=== PATIENT | male | born 1985 | race Caucasian/White ===

== ENCOUNTER 2016-11-14 18:19 | Emergency (ER) | payer SELFPAY ==
[2016-11-14 18:30] VITALS: BP 137/81; PULSE 70; TEMP 97.7; BMI 33.0
--- NOTE | 2016-11-14 18:47 | PDOC ---
History of Present Illness - General History Source: Patient Exam Limitations: No Limitations <Danielle Matsoncasrenettakenneth - Last Filed: 11/14/16 22:09> <SerafinRian - Last Filed: 11/14/16 22:19> - General Chief Complaint: Chest Pain Stated Complaint: CHEST PAIN Time Seen by Provider: 11/14/16 18:47 - History of Present Illness Initial Comments: 11/14/16 19:26 The patient is a 31 year old male, with no significant past medical history, who presents to the emergency department with numbness to the left arm and chest pain for approximately 4 days. The patient reports he first noted numbness and weakness from the left elbow down to the front of his hand. Patient describes the numbness as a hot sensation. Patient reports associated episodes of dizziness 3 days ago. Patient reports he initially thought his symptoms were associated with his rotator cuff. Today, patient reports he began to experience chest pain, which he describes as a pressure. He reports mild left shoulder pain. He denies any diaphoresis, palpitations, shortness of breath, or lower extremity edema. Patient reports he has intermittently had numbness in his arm in the past. 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 He denies any recent trauma. He denies any fever, chills, or headache. He denies any abdominal pain, nausea, or vomiting. He denies any recent travel or sick contacts. Allergies: NKDA Past Surgical History: None reported Social History: Family hx of heart disease. Current everyday smoker. Daily ETOH use. No recreational drug use. (Deysi Matson) Past History <Deysi Matson - Last Filed: 11/14/16 22:09> - Past Medical History Anemia: No Asthma: No Cancer: No Cardiac Disorders: No CVA: No COPD: No CHF: No Dementia: No Diabetes: No GI Disorders: No Disorders: No HTN: No Hypercholesterolemia: Yes (QUESTIONABLE) Liver Disease: No Seizures: No Thyroid Disease: No - Surgical History Abdominal Surgery: No Appendectomy: No Cardiac Surgery: No Cholecystectomy: No Lung Surgery: No Neurologic Surgery: No Orthopedic Surgery: No - Suicide/Smoking/Psychosocial Hx Smoking History: Current every day smoker Have you smoked in the past 12 months: Yes Number of Cigarettes Smoked Daily: 25 Information on smoking cessation initiated: Yes 'Breaking Loose' booklet given: 11/14/16 Hx Alcohol Use: No Drug/Substance Use Hx: No Substance Use Type: None <Rian Betancourt - Last Filed: 11/14/16 22:19> - Past Medical History Allergies/Adverse Reactions: Allergies Allergy/AdvReac Type Severity Reaction Status Date / Time No Known Allergies Allergy Verified 11/14/16 18:29 Home Medications: Ambulatory Orders No Home Medications 0 dose .ROUTE UTDICT 03/29/12 Cyclobenzaprine HCl [Amrix] 15 mg PO DAILY #3 capsule 03/30/12 Ketorolac Tromethamine [Toradol] 10 mg PO Q6H #20 tablet 03/30/12 Oxycodone HCl/Acetaminophen [Percocet 5-325 mg Tablet] 1 - 2 tab PO Q4H PRN #30 tablet 03/30/12 Cardiac Specific PMH - Complaint Specific PMHX Pacemaker: No <Rian Betancourt - Last Filed: 11/14/16 22:19> Review of Systems - Review of Systems Able to Perform ROS?: Yes <Deysi Matson - Last Filed: 11/14/16 22:09> <Rian Betancourt - Last Filed: 11/14/16 22:19> - Review of Systems Comments:: 11/14/16 19:27 CONSTITUTIONAL: No fever, no chills, no fatigue EYES: No visual changes ENT: No ear pain, no sore throat CARDIOVASCULAR: Yes chest pain. No palpitations RESPIRATORY: No cough, no SOB GI: No abdominal pain, no nausea, no vomiting, no constipation, no diarrhea GENITOURINARY: No dysuria, no frequency, no hematuria MUSCULOSKELETAL: Left arm numbness, left shoulder pain. No back pain, no myalgias SKIN: No rash NEURO: Yes dizziness. No headache (Matson,Giomilsy) *Physical Exam <Deysi Matson - Last Filed: 11/14/16 22:09> <Rian Betancourt - Last Filed: 11/14/16 22:19> - Vital Signs Last Vital Signs Temp Pulse Resp BP Pulse Ox 97.7 F 70 18 137/81 98 11/14/16 18:27 11/14/16 18:27 11/14/16 18:27 11/14/16 18:27 11/14/16 18:27 - Physical Exam Comments: 11/14/16 19:27 CONSTITUTIONAL: Well-appearing; well-nourished; in no apparent distress HEAD: Normocephalic; atraumatic EYES: PERRL; EOM intact ENMT: External appears normal; normal oropharynx NECK: Supple; non-tender; no cervical lymphadenopathy CARD: Normal S1, S2; no murmurs, rubs, or gallops RESP: Normal chest excursion with respiration; breath sounds clear and equal bilaterally; no wheezes, rhonchi, or rales ABD: Soft, non-distended; non-tender; no palpable organomegaly, no palpable hernias SKIN: Warm, dry, no rash (Deysi Matson) EXTR: No obvious deformity; there is mild to moderate tenderness to palpation along the anterior aspect of the left shoulder joint, with pain on abduction and anterior flexion; neurovascularly intact distally; there is also reproducible tenderness anteromedial to the left shoulder joint reproducing the patient's chest discomfort; NEURO: Cranial nerves II through XII are grossly intact; motor is 5 of 54; Fine touch and proprioception are intact bilaterally; gait-stable; (Rian Betancourt) Heart Score/ECG Review <Deysi Matson - Last Filed: 11/14/16 22:09> <Rian Betancourt - Last Filed: 11/14/16 22:19> - ECG Intrepretation Comment:: 11/14/16 22:09 Time: 18:29 Vent Rate: 76 bpm IMPRESSION: Normal sinus rhythm Time: 21:11 Vent Rate: 67 bpm IMPRESSION: Normal sinus rhythm (Deysi Matson) ED Treatment Course - LABORATORY CBC & Chemistry Diagram: 11/14/16 19:23 11/14/16 19:23 <Deysi Matson - Last Filed: 11/14/16 22:09> - LABORATORY CBC & Chemistry Diagram: 11/14/16 19:23 11/14/16 19:23 <Rian Betancourt - Last Filed: 11/14/16 22:19> - ADDITIONAL ORDERS Additional order review: Laboratory Results 11/14/16 19:23 Sodium 142 Potassium 4.0 Chloride 109 H Carbon Dioxide 26 Anion Gap 7 L BUN 12 Creatinine 0.7 Creat Clearance w eGFR > 60 Random Glucose 114 H Calcium 8.8 Total Bilirubin 0.2 AST 16 ALT 39 Alkaline Phosphatase 72 Creatine Kinase 96 Troponin I < 0.02 Total Protein 6.8 Albumin 3.7 11/14/16 19:23 RBC 5.04 MCV 88.0 MCHC 33.6 RDW 13.0 MPV 8.3 Neutrophils % 44.7 Lymphocytes % 44.7 H Monocytes % 5.5 Eosinophils % 4.3 Basophils % 0.8 - RADIOLOGY Radiology Studies Ordered: Category Date Time Status CHEST PA & LAT [RAD] Stat Radiology 11/14/16 19:15 Taken - Medications Given in the ED: ED Medications Discontinued Medications Generic Name Dose Route Start Last Admin Trade Name Freq PRN Reason Stop Dose Admin Ketorolac Tromethamine 60 mg 11/14/16 20:53 11/14/16 20:57 Toradol Injection - IM 11/14/16 20:54 60 mg ONCE ONE Administration Medical Decision Making <Deysi Matson - Last Filed: 11/14/16 22:09> <Rian Betancourt - Last Filed: 11/14/16 22:19> - Medical Decision Making 11/14/16 22:14 Patient is a well-appearing 31-year-old male who presents to the ER with atraumatic left arm paresthesias, left shoulder pain and left anterior chest pain. Patient's left arm paresthesias of persisted for the past several years but have increased in severity over the past several days. Patient's left shoulder and anterior chest pain have persisted for the past 4 days; symptoms are nonpleuritic, atraumatic and are exacerbated by movement at the shoulder joint. In the ER, patient is awake and alert, hemodynamically stable. Chest x- ray reveals no evidence of apical mass; there is no evidence of cardiomegaly; mediastinum is within normal limit. Serial EKGs are within normal limit. Cardiac enzymes are within normal limit and given the onset of symptoms 4 days prior cyst and with absence of myocardial infarction in this patient. Patient's satisfies all the PERC criteria and PEs highly unlikely. I do not suspect ACS/ PE or aortic dissection at this time. Patient was given IM Toradol with improvement in the level of his symptoms. Will discharge with orthopedic follow- up. (Rian Betancourt) *DC/Admit/Observation/Transfer <Deysi Matson - Last Filed: 11/14/16 22:09> <Rian Betancourt - Last Filed: 11/14/16 22:19> Diagnosis at time of Disposition: Atypical chest pain, Paresthesia of left upper extremity Left shoulder pain Qualifiers: Chronicity: acute Qualified Code(s): M25.512 - Pain in left shoulder; M25.512 - Pain in left shoulder - Discharge Dispostion Disposition: HOME Condition at time of disposition: Stable - Referrals Referrals: Neeraj Alba MD [Staff Physician] - Silviano Pascual MD [Staff Physician] - - Patient Instructions Printed Discharge Instructions: DI for Atypical Chest Pain, DI for Shoulder Pain, DI for Numbness/tingling - Attestations Scribe Attestion: 11/14/16 19:26 Documentation prepared by Deysi Matson, acting as medical pathologist for Rian Betancourt MD. (Deysi Matson) Physician Attestion: 11/14/16 22:12 The documentation was prepared by the scribe under my direct supervision. I have reviewed the documentation which correctly represents the findings, medical decision-making and critical action taken by me. (Rian Betancourt)
[2016-11-14 19:29] LABS: BASOPHIL 0.8 % (0-2.0); EOSINOPHIL 4.3 % (0-4.5); MCH 29.5 pg (25.7-33.7); MCHC 33.6 g/dl (32.0-35.9); MEAN PLT VOLUME 8.3 fl (7.5-11.1); NEUTROPHILS 44.7 % (42.8-82.8); PLATELET COUNT 194 K/MM3 (134-434); WHITE BLOOD COUNT 8.6 K/mm3 (4.0-10.0)
[2016-11-14 19:51] LABS: ALBUMIN 3.7 g/dl (3.4-5.0); ANION GAP 7 (8-16); BILIRUBIN,TOTAL 0.2 mg/dL (0.2-1.0); CALCIUM 8.8 mg/dL (8.5-10.1); CO2 26 mmol/L (21-32); CREATININE 0.7 mg/dL (0.7-1.3); GLUCOSE,RANDOM 114 mg/dL (74-106); SGOT/AST 16 U/L (15-37); SGPT/ALT 39 U/L (12-78); TOT PROT 6.8 g/dl (6.4-8.2)
[2016-11-14 19:54] LABS: ALK PHOS 72 U/L (45-117); CPK 96 IU/L (39-308); TROPONIN I < 0.02 ng/ml (0.00-0.05)
[2016-11-14] MEDS ORDERED: KETOROLAC TROMETHAMINE 60 MG/2 ML VIAL IM ONE (20:53)
[2016-11-14] MEDS ORDERED: KETOROLAC TROMETHAMINE 60 MG/2 ML VIAL ONE (20:55)
--- NOTE | 2016-11-15 16:08 | EKG ---
Test Reason : Blood Pressure : / mmHG Vent. Rate : 067 BPM Atrial Rate : 067 BPM P-R Int : 146 ms QRS Dur : 094 ms QT Int : 400 ms P-R-T Axes : 024 079 030 degrees QTc Int : 422 ms NORMAL SINUS RHYTHM RSR' OR QR PATTERN IN V1 SUGGESTS RIGHT VENTRICULAR CONDUCTION DELAY NO PREVIOUS ECGS AVAILABLE CLINICAL CORRELATION IS RECOMMENDED Confirmed by FIDENCIO VIRGEN MD ([id number]) on 11/15/2016 4:07:53 PM Referred By: Confirmed By:FIDENCIO VIRGEN MD
--- NOTE | 2016-11-20 09:20 | EKG ---
Test Reason : Blood Pressure : / mmHG Vent. Rate : 076 BPM Atrial Rate : 076 BPM P-R Int : 142 ms QRS Dur : 090 ms QT Int : 380 ms P-R-T Axes : 027 076 018 degrees QTc Int : 427 ms NORMAL SINUS RHYTHM NORMAL ECG NO PREVIOUS ECGS AVAILABLE Confirmed by ZAINAB PATE MD ([id number]) on 11/20/2016 9:19:38 AM Referred By: Confirmed By:ZAINAB PATE MD
== END 2016-11-14 22:31 | disposition home or self-care (01) ==
LOC: JER 18:19
PROC: 3E0233Z Introduction of Anti-inflammatory into Muscle, Percutaneous Approach (ICD-10-PCS; principal; 2016-11-14)
DX: R07.89 Other chest pain (principal); R20.2 Paresthesia of skin; M25.512 Pain in left shoulder
CPT/HCPCS: 36415; 71020-TC; 80053; 84484; 85025; 93005; 93010; 99283-25